=== PATIENT | female | born 1950 | race Caucasian/White ===

== ENCOUNTER 2020-11-29 09:24 | Emergency (ER) | payer OTHER, MEDICARE ==
[~2020-11-29] VITALS: Ht 165.1 cm; Wt 99.8 kg
--- NOTE | 2020-11-29 09:30 | NUR ---
Patient to ER bed 6 to gown for evaluation. Side rails up.
[2020-11-29 09:35] VITALS: BP_SYST 105
[2020-11-29] MEDS ORDERED: ACETAMINOPHEN 325 MG TABLET PO ONE (09:45)
--- NOTE | 2020-11-29 09:45 | NUR ---
ER at bedside examining patient.
--- NOTE | 2020-11-29 09:45 | NUR ---
pt came into ER with complaint of right sided rib pain from a fall x2 days ago 6/10 pain and tenderness on the right side of ribs no bruising. pt reports she tripped over a curb and fell on her right side. bruise noted on right knee. pt denies hitting her head and no trauma noted. pt [id number] vss resting in [facility].
--- NOTE | 2020-11-29 09:53 | NUR ---
Patient transported to radiology via wheelchair, accompanied by staff
[2020-11-29] MEDS ORDERED: ACET325T53 PO (10:35)
[2020-11-29 10:42] VITALS: BP_SYST 105
--- NOTE | 2020-11-29 10:43 | NUR ---
Patient given written and verbal discharge instructions and verbalizes understanding. ER MD discussed with patient the results and treatment provided. Patient in stable condition. ID arm band removed. Rx of tylenol given. Patient educated on pain management and to follow up with PMD. Pain Scale 0/10 Opportunity for questions provided and answered. Medication side effect fact sheet provided.
== END 2020-11-29 10:43 | disposition home or self-care (01) ==
LOC: SED 09:24
DX: S20.211A Contusion of right front wall of thorax, initial encounter (principal); M25.561 Pain in right knee; M25.562 Pain in left knee; I10 Essential (primary) hypertension; J44.9 Chronic obstructive pulmonary disease, unspecified; E11.9 Type 2 diabetes mellitus without complications; W18.39XA Other fall on same level, initial encounter; Y93.89 Activity, other specified; Y92.89 Other specified places as the place of occurrence of the external cause; Y99.8 Other external cause status
CPT/HCPCS: 71045; 71100; 99284